=== PATIENT | male | born 1975 | race Caucasian/White ===

== ENCOUNTER 2023-02-27 08:40 | Emergency (ER) | payer OTHER | END 2023-02-27 10:41 | disposition home or self-care (01) | LOC: JP.ED 08:40 | DX: M70.22 Olecranon bursitis, left elbow (principal) | CPT/HCPCS: 73080-26-LT; 73080-LT; 99282; 99283 ==

== ENCOUNTER 2023-03-05 07:49 | Emergency (ER) | payer SELFPAY | END 2023-03-05 08:43 | disposition home or self-care (01) | LOC: JP.ED 07:49 | DX: M70.22 Olecranon bursitis, left elbow (principal) | CPT/HCPCS: 99282; 99283 ==